=== PATIENT | male | born 1980 ===

== ENCOUNTER 2019-10-07 13:21 | Emergency (ER) | payer OTHER ==
[~2019-10-07] VITALS: Ht 152.4 cm; Wt 97.5 kg
[~2019-10-07 13:21] MED LIST: IBUPROFEN800 MG PO; OSEL75CA PO; PERCOCET 5-3251 EACH PO; SKELAXIN800 MG PO
[2019-10-07] MEDS ORDERED: BENADRYL25 MG PO (16:24)
[2019-10-07] MEDS ORDERED: ZYRTEC10 M3 PO (16:24)
[2019-10-07] MEDS ORDERED: MEDROLPACK PO (16:24)
== END 2019-10-07 16:32 | disposition home or self-care (01) ==
LOC: ER 13:21
DX: T78.49XA Other allergy, initial encounter (principal); R21 Rash and other nonspecific skin eruption